=== PATIENT | male | born 1970 | race Two or more races ===

== ENCOUNTER 2019-07-06 15:34 | Emergency (ER) | payer MEDICAID ==
--- NOTE | 2019-07-06 16:30 | ER Document Report ---
ED Medical Screen (RME) - General Chief Complaint: Groin Pain Stated Complaint: GROIN PAIN Time Seen by Provider: 07/06/19 16:28 Mode of Arrival: Ambulatory Information source: Patient Notes: 49-year-old male presents to ED for complaint in the left groin off and on for the last month. He states it is getting worse. He states he feels at times that he has a hernia. He states at times he thinks there is something there is bulging in the area. He states he does not do any heavy lifting he states he has not been to a doctor before now. He denies smoking drinking or using any drugs. I have greeted and performed a rapid initial assessment of this patient. A comprehensive ED assessment and evaluation of the patient, analysis of test results and completion of medical decision making process will be conducted by an additional ED providers. TRAVEL OUTSIDE OF THE [place] IN LAST 30 DAYS: No Physical Exam - Vital signs Vitals: Temp Pulse Resp BP Pulse Ox 98.1 F 92 18 137/79 H 96 07/06/19 15:54 07/06/19 15:54 07/06/19 15:54 07/06/19 15:54 07/06/19 15:54 Course - Vital Signs Vital signs: Temp Pulse Resp BP Pulse Ox 98.1 F 92 18 137/79 H 96 07/06/19 15:54 07/06/19 15:54 07/06/19 15:54 07/06/19 15:54 07/06/19 15:54
[2019-07-06 17:17] LABS: APPEARANCE,URINE CLEAR; BILIRUBIN,URINE NEGATIVE (NEGATIVE); COLOR,URINE YELLOW; GLUCOSE, URINE 50 mg/dL (NEGATIVE); KETONES,URINE NEGATIVE (NEGATIVE); PROTEIN,URINE NEGATIVE (NEGATIVE); URINE SPECIFIC GRAVITY 1.017; UROBILINOGEN,URINE NEGATIVE mg/dL (<2.0)
--- NOTE | 2019-07-06 17:31 | RADIOLOGY REPORT (SQ) ---
EXAM DESCRIPTION: U/S SCROTUM W/O DOPPLER COMPLETED DATE/TIME: 07/06/2019 5:16 pm REASON FOR STUDY: left groin pain, swelling COMPARISON: None. TECHNIQUE: Static and realtime hines scale imaging of the scrotum and testes. Selected color Doppler and spectral images recorded to document blood flow. LIMITATIONS: None. FINDINGS: RIGHT: TESTICLE: Normal size. Normal echotexture. Normal blood flow. No mass. EPIDIDYMIS: Normal. HYDROCELE OR VARICOCELE: Simple appearing hydrocele is present. HERNIA OR EXTRA-TESTICULAR MASS: No. OTHER: No other significant finding. LEFT: TESTICLE: Normal size. Normal echotexture. Normal blood flow. No mass. EPIDIDYMIS: Normal. HYDROCELE OR VARICOCELE: A mildly complicated hydrocele is present. HERNIA OR EXTRA-TESTICULAR MASS: No. OTHER: No other significant finding. IMPRESSION: Essentially normal sonographic appearance of the scrotal contents. Focused evaluation o f the left groin demonstrates no underlying abnormalities. TECHNICAL DOCUMENTATION: JOB ID: [id number] [employer]- All Rights Reserved Reading location - IP/workstation name: [email or web address]
[2019-07-06 18:17] LABS: ABSOLUTE LYMPHOCYTES (AUTO) 0.7 10^3/uL (0.5-4.7); ABSOLUTE MONOCYTES (AUTO) 0.4 10^3/uL (0.1-1.4); ABSOLUTE NEUT (AUTO) 10.1 10^3/uL (1.7-8.2); BASOPHILS % (AUTO) 0.2 % (0-2); HEMATOCRIT 48.1 % (37.9-51.0); HEMOGLOBIN 16.1 g/dL (13.5-17.0); MEAN CORPUSCULAR HEMOGLOBIN 29.8 pg (27.0-33.4); MEAN CORPUSCULAR HGB CONC 33.5 g/dL (32.0-36.0); MEAN CORPUSCULAR VOLUME 89 fl (80-97); MONOCYTES % (AUTO) 3.2 % (3-13); PLATELET COUNT 239 10^3/uL (150-450); RED CELL DISTRIBUTION WIDTH 12.3 % (11.5-14.0); SEGMENTED NEUTROPHILS % (AUTO) 90.6 % (42-78); TOTAL CELLS COUNTED % (AUTO) 100 %; WHITE BLOOD COUNT 11.2 10^3/uL (4.0-10.5)
[2019-07-06 18:36] LABS: ALBUMIN 4.4 g/dL (3.5-5.0); ALKALINE PHOSPHATASE 44 U/L (38-126); ANION GAP 10 (5-19); ASPARTATE AMINO TRANSFERASE 19 U/L (17-59); BILIRUBIN,DIRECT 0.1 mg/dL (0.0-0.4); BILIRUBIN,TOTAL 0.4 mg/dL (0.2-1.3); BLOOD UREA NITROGEN 21 mg/dL (7-20); CALCIUM 9.5 mg/dL (8.4-10.2); CARBON DIOXIDE 26 mmol/L (22-30); CHLORIDE 106 mmol/L (98-107); GLUCOSE 83 mg/dL (75-110); POTASSIUM 4.5 mmol/L (3.6-5.0); TOTAL PROTEIN 7.3 g/dL (6.3-8.2)
--- NOTE | 2019-07-06 21:13 | ER Document Report ---
HPI - HPI Patient complains to provider of: left groin pain Time Seen by Provider: 07/06/19 16:28 Onset: Other - 1 month Onset/Duration: Waxing and waning Quality of pain: Achy Pain Level: 1 Context: Patient presents complaining of left groin pain off and on for the past month. Patient reports that he will have bulging to the groin area and is concerned that he may have a hernia. Patient states that it comes up and resolves on its own. Patient denies any nausea vomiting fever or urinary symptoms. Patient denies any blood in the stool. Patient denies any testicular pain or urinary symptoms. Associated Symptoms: denies: Fever, Nausea, Vomiting Exacerbated by: Movement Relieved by: Denies Similar symptoms previously: Yes Recently seen / treated by doctor: No - ROS ROS below otherwise negative: Yes Systems Reviewed and Negative: Yes All other systems reviewed and negative - CONSTITUTIONAL Constitutional: DENIES: Fever, Chills - GASTROINTESTINAL Gastrointestinal: DENIES: Abdominal Pain, Nausea, Patient vomiting Notes: Left groin tenderness - URINARY Urinary: DENIES: Dysuria, Urgency, Frequency - MUSCULOSKELETAL Musculoskeletal: DENIES: Back Pain, Neck Pain - DERM Skin Color: Normal Skin Problems: None Past Medical History - General Information source: Patient - Social History Smoking Status: Never Smoker Chew tobacco use (# tins/day): No Frequency of alcohol use: None Drug Abuse: None Occupation: None Lives with: Alone Family History: Reviewed & Not Pertinent Patient has suicidal ideation: No Patient has homicidal ideation: No - Medical History Medical History: Other - Dermatomyositis Past Surgical History: Reports: Other - Muscle biopsy Vertical Provider Document - CONSTITUTIONAL Agree With Documented VS: Yes Exam Limitations: No Limitations General Appearance: WD/WN, No Apparent Distress - INFECTION CONTROL TRAVEL OUTSIDE OF THE [place] IN LAST 30 DAYS: No - HEENT HEENT: Atraumatic, Normocephalic - NECK Neck: Normal Inspection, Supple - RESPIRATORY Respiratory: Breath Sounds Normal, No Respiratory Distress - CARDIOVASCULAR Cardiovascular: Regular Rate, Regular Rhythm - GI/ABDOMEN Gastrointestinal: Abdomen Soft, Abdomen Non-Tender - REPRODUCTIVE Notes: Patient with mild tenderness to the left inguinal area, no palpable bulge or mass. No inguinal or femoral hernia noted. No testicular tenderness. Normal skin color to groin area, no rashes, no palpable lymphadenopathy. - MUSCULOSKELETAL/EXTREMETIES Musculoskeletal/Extremeties: MAEW - NEURO Level of Consciousness: Awake, Alert, Appropriate Motor/Sensory: No Motor Deficit - DERM Integumentary: Warm, Dry Course - Re-evaluation Re-evalutation: 07/06/19 21:11 Patient with left inguinal tenderness. Patient reports a bulge that comes and goes. Discussed with patient findings of hydrocele noted on ultrasound report. Patient advised that hydroceles can change size. Discussed with patient also the possibility of a hernia that is currently reduced at this time. Patient without any evidence for testicular torsion. Patient without any findings worrisome for incarcerated hernia at this time. Patient reports he came in tonight as it was convenient for his schedule but states that presently his pain is better although at times it is much worse. Patient does have an incidental elevated white blood cell count but suspect this is likely attributed to the fact that he is on chronic long-term steroids for his dermatomyositis. Patient encouraged to follow-up with general surgeon as well as a urologist for further evaluation of his inguinal tenderness. - Vital Signs Vital signs: Temp Pulse Resp BP Pulse Ox 98.1 F 92 18 137/79 H 96 07/06/19 15:54 07/06/19 15:54 07/06/19 15:54 07/06/19 15:54 07/06/19 15:54 - Laboratory Result Diagrams: 07/06/19 17:18 07/06/19 17:18 Laboratory results interpreted by me: 07/06/19 07/06/19 07/06/19 16:54 17:18 17:18 WBC 11.2 H Lymph % (Auto) 6.0 L Absolute Neuts (auto) 10.1 H Seg Neutrophils % 90.6 H BUN 21 H Urine Glucose (UA) 50 H Urine Ascorbic Acid 20 H 07/07/19 02:15 Labs- Entire Visit 07/06/19 07/06/19 07/06/19 16:54 17:18 17:18 WBC 11.2 H RBC 5.40 Hgb 16.1 Hct 48.1 MCV 89 MCH 29.8 MCHC 33.5 RDW 12.3 Plt Count 239 Lymph % (Auto) 6.0 L Bee % (Auto) 3.2 Eos % (Auto) 0.0 Baso % (Auto) 0.2 Absolute Neuts (auto) 10.1 H Absolute Lymphs (auto) 0.7 Absolute Monos (auto) 0.4 Absolute Eos (auto) 0.0 Absolute Basos (auto) 0.0 Seg Neutrophils % 90.6 H Sodium 142.3 Potassium 4.5 Chloride 106 Carbon Dioxide 26 Anion Gap 10 BUN 21 H Creatinine 0.81 Est GFR ( Amer) > 60 Est GFR (MDRD) Non-Af > 60 Glucose 83 Calcium 9.5 Total Bilirubin 0.4 Direct Bilirubin 0.1 Neonat Total Bilirubin Not Reportable Neonat Direct Bilirubin Not Reportable Neonat Indirect Bili Not Reportable AST 19 ALT 20 Alkaline Phosphatase 44 Total Protein 7.3 Albumin 4.4 Urine Color YELLOW Urine Appearance CLEAR Urine pH 8.0 Ur Specific [place] 1.017 Urine Protein NEGATIVE Urine Glucose (UA) 50 H Urine Ketones NEGATIVE Urine Blood NEGATIVE Urine Nitrite (Reflex) NEGATIVE Urine Bilirubin NEGATIVE Urine Urobilinogen NEGATIVE Leukocyte Esterase Rfl NEGATIVE Urine RBC (Auto) 1 Urine Mucus (Auto) RARE Urine Ascorbic Acid 20 H - Diagnostic Test Radiology reviewed: Reports reviewed Discharge - Discharge Clinical Impression: Hydrocele Qualifiers: Hydrocele type: unspecified Qualified Code(s): N43.3 - Hydrocele, unspecified Groin pain Qualifiers: Laterality: left Qualified Code(s): R10.32 - Left lower quadrant pain Condition: Stable Disposition: HOME, SELF-CARE Instructions: Hernia ([facility]), Hydrocele ([facility]) Additional Instructions: Return immediately for any new or worsening symptoms: Fever, vomiting, worsening pain, or any concerning symptoms Followup with your primary care provider, call tomorrow to make a followup appointment Follow-up with urologist for further evaluation of your hydrocele. Your primary doctor can make a referral for you. Follow-up with the general surgeon for further evaluation of groin pain. Referrals: ROSA ORTEGA DO [Primary Care Provider] - Follow up as needed [facility] [Provider Group] - Follow up as needed [facility] [Provider Group] - Follow up as needed
[2019-07-06 21:54] VITALS: BP 121/86
== END 2019-07-06 21:52 | disposition home or self-care (01) ==
LOC: ER 15:34
DX: R10.32 Left lower quadrant pain (principal); N43.3 Hydrocele, unspecified; D72.829 Elevated white blood cell count, unspecified; M33.90 Dermatopolymyositis, unspecified, organ involvement unspecified; Z79.52 Long term (current) use of systemic steroids
CPT/HCPCS: 36415; 76870; 80053; 81001; 85025; 99284